=== PATIENT | male | born 1995 ===

== ENCOUNTER 2017-10-19 16:33 | Emergency (ER) | payer BC ==
[2017-10-19 18:31] VITALS: BP 108/78
[2017-10-19] MEDS ORDERED: Oseltamivir CAP* 75 MG CAP PO ONE (19:12)
--- NOTE | 2017-10-19 19:20 | UC ---
Respiratory Complaint HPI - HPI Summary HPI Summary: 22 yo male with abrupt onset f/c, sore throat, myalgias and headache cough and congestion no CP or SOB - History of Current Complaint Chief Complaint: UCRespiratory Stated Complaint: FLU LIKE SYMPTOMS Time Seen by Provider: 10/19/17 18:36 Hx Obtained From: Patient Onset/Duration: Sudden Onset Severity Initially: Moderate Severity Currently: Moderate Pain Intensity: 5 Pain Scale Used: 0-10 Numeric Character: Cough: Nonproductive Associated Signs And Symptoms: Positive: Fever, Chills, Nasal Congestion - Allergies/Home Medications Allergies/Adverse Reactions: Allergies Allergy/AdvReac Type Severity Reaction Status Date / Time No Known Allergies Allergy Verified 10/19/17 18:18 Home Medications: Home Medications Ibuprofen TAB* [Advil TAB*] 200 mg PO ONCE PRN 10/19/17 [History Confirmed 10/19] PMH/Surg Hx/FS Hx/Imm Hx Previously Healthy: Yes Respiratory History: Asthma - Surgical History Surgical History: Yes Surgery Procedure, Year, and Place: appy - Family History Known Family History: Positive: Hypertension - Social History Alcohol Use: Weekly Alcohol Amount: 15-20 Substance Use Type: Marijuana Substance Use Comment - Amount & Last Used: yesterday Smoking Status (MU): Never Smoked Tobacco Review of Systems Constitutional: Fever Skin: Negative Eyes: Negative ENT: Sore Throat, Nasal Discharge, Sinus Congestion Respiratory: Cough Cardiovascular: Negative Gastrointestinal: Negative Genitourinary: Negative Motor: Negative Neurovascular: Negative Musculoskeletal: Myalgia Neurological: Headache Psychological: Negative Is Patient Immunocompromised?: No All Other Systems Reviewed And Are Negative: Yes Physical Exam Triage Information Reviewed: Yes Appearance: Well-Appearing, No Pain Distress, Well-Nourished Vital Signs: Initial Vital Signs Temp 99.1 F 10/19/17 18:22 Pulse 73 10/19/17 18:22 Resp 16 10/19/17 18:22 BP 108/78 10/19/17 18:22 Pulse Ox 99 10/19/17 18:22 Vital Signs Reviewed: Yes Eyes: Positive: Conjunctiva Clear ENT: Positive: Hearing grossly normal, Pharyngeal erythema, Nasal congestion, Nasal drainage, Uvula midline. Negative: Muffled voice, Hoarse voice Neck: Positive: Supple, Nontender, No Lymphadenopathy Respiratory: Positive: Lungs clear, Normal breath sounds, No respiratory distress, No accessory muscle use Cardiovascular: Positive: RRR, No Murmur Bowel Sounds: Positive: Present Musculoskeletal Exam: Normal Neurological: Positive: Alert Psychological Exam: Normal Skin Exam: Normal UC Diagnostic Evaluation - Laboratory Pertinent Lab Values Are: WNL - strep (-) O2 Sat by Pulse Oximetry: 99 - normal/not hypoxic Respiratory Course/Dx - Differential Dx/Diagnosis Provider Diagnoses: influenza or influenza like illness Discharge - Discharge Plan Condition: Stable Disposition: HOME Prescriptions: Oseltamivir CAP* [Tamiflu CAP*] 75 mg PO BID #9 cap Patient Education Materials: Influenza (ED) Forms: *School Release Referrals: Non Staff,Doctor [Primary Care Provider] - Additional Instructions: rest fluids tylenol or advil recheck in 4-5 days if not better
== END 2017-10-19 19:26 | disposition home or self-care (01) ==
LOC: UCCORT 16:33
DX: J11.1 Influenza due to unidentified influenza virus with other respiratory manifestations (principal)
CPT/HCPCS: 87651; 99202; A9270-GY; G0463